=== PATIENT | male | born 1960 | race Caucasian/White ===

== ENCOUNTER 2020-01-23 12:40 | Observation (INO) | payer MEDICARE ==
[~2020-01-23] VITALS: Ht 172.7 cm; Wt 69.1 kg
--- NOTE | 2020-01-23 12:40 | NUR ---
PATIENT TO ROOM VIA EMS STATING MIDSTERNAL CHEST PAIN RADIATING DOWN RIGHT ARM. PATIENT STATES SIMILAR SYMPTOMS IN THE PAST WHEN HE RAN OUT OF HIS [facility]SON[facility] MEDS. PATIENT STATES HAS BEEN OUT OF HIS MEDICATION FOR A DAY BUT HAS THEM WAITING TO BE PICKED UP
[2020-01-23] MEDS ORDERED: PRAMIPEXOLE0.75 MG PO (13:01)
[2020-01-23] MEDS ORDERED: CARBIDOPA25 MG (13:02)
[2020-01-23 13:27] LABS: HEMOGLOBIN 12.5 g/dl (14.0-18.0); IMMATURE GRANULOCYTES 0.5 % (0.0-5.0); MEAN CELL VOLUME 95.7 fL CALC (80.0-100.0); MEAN CORPUSCULAR HGB 29.9 pG CALC (26.0-32.0); MEAN CORPUSCULAR HGB CONC 31.3 g/dL CAL (32.0-36.0); NEUT# 3.73 thou/uL (1.82-7.42); RED BLOOD COUNT 4.18 mill/uL (4.70-6.10); RED CELL DISTRI WIDTH 15.7 % (11.5-15.5)
--- NOTE | 2020-01-23 13:30 | NUR ---
PT ARRIVES BY EMS WITH COMPLAITS OF CHEST PRESSURE AND DIZZINESS. HE STATES THAT HE HAS NOT TAKEN HIS REGULAR P[facility]IN[facility] MEDS TODAY AND HE HAS SIMIALAR SYMPTOMS THIS WHEN HE IS OFF. THEY ARE FILLED BUT WAITING AT PHARM. PT WEAK, AOX4. DENIES ANY OTHER S/S AND PAINS.
--- NOTE | 2020-01-23 14:30 | NUR ---
PT RESTING ON STRETCHER DENYING ANY PAIN
[2020-01-23 14:31] LABS: ANION GAP 8 (6-22 (CALC)); BUN 14 mg/dL (9-20); BUN/CREATININE RATIO 16 (12-20 (CALC)); CARBON DIOXIDE 33 mmol/l (22-30); CHLORIDE 103 mmol/l (95-108); CREATININE 0.9 mg/dL (0.7-1.3); GFR > 60 ML/MIN (>=60 (CALC)); GFR FOR AFR.AMER. > 60 ML/MIN (>=60 (CALC)); POTASSIUM 4.2 mmol/l (3.5-5.1); SODIUM 139 mmol/l (137-146)
--- NOTE | 2020-01-23 15:30 | NUR ---
PT UPDATED ON PENDING ADMISSION. DENIES ANY NEEDS AT THIS TIME
[2020-01-23] MEDS ORDERED: CARB/LEVO1 TA3 PO (15:53)
[2020-01-23] MEDS ORDERED: PRAMIPEXOLE DI1.5 MG PO (15:54)
--- NOTE | 2020-01-23 16:11 | NUR ---
ATTEMPTED TO CALL REPORT AND IT WAS SAID THAT NURSE IS BUSY WITH A PT.
--- NOTE | 2020-01-23 16:21 | NUR ---
REPORT REC FROM MALIA TYLER
--- NOTE | 2020-01-23 16:22 | NUR ---
GAVE REPORT TO JANAE
--- NOTE | 2020-01-23 16:30 | NUR ---
PT TRANSPORTED TO [facility] SURG STABLE AND IN NO DISTRESS. CARE ASSUMED TO JANAE
--- NOTE | 2020-01-23 16:42 | NUR ---
PT ARRIVED TO [facility] VIA STRETCHER ACCOMPANIED BY MALIA TYLER. A&O X3. NO DISTRESS NOTED. WEAKNED AND SLIGHLTY SHUFFLED GAIT NOTED. PT STATES GAIT HAS WORSENED THROUGHOUT THE PAST COUPLE OF WEEKS. CURRENTLY STRESSED DUE TO FINANCIAL STATUS AND BEING HOMELESS. STATES CP IS CURRENTLY AT 3/10, DESCRIBED SHARP PAIN RADIATING TO THE RT ARM. PT STATES HE HAS MULTIPLE FALLS THROUGHOUT THE DAY. RT KNEE SWOLLEN, PT STATES IT WAS DUE TO A FALL. EDEMA NOTED TO BLE. NO OTHER NEEDS AT THIS TIME. ASSESSMENT COMPLETED. DISCUSSED POC. CALL LIGHT IN REACH. CONTINUE TO MONITOR.
[2020-01-23 16:58] VITALS: BP 135/87
[2020-01-23 19:15] VITALS: BP 134/86
--- NOTE | 2020-01-23 20:32 | NUR ---
PT MEDICATED ORDERS PROVIDE AND ASSESSMENT COMPLETED AT THIS TIME. PT DENIES ANY NEEDS AT THIS TIME. NEURO ASSESSMENT COMPLETED, MILD WEAKNESS TO RLE AND LUE. PT LOCX4, IDENTIFIES OBJECTS CORRECTLY. WILL CONTINUE TO MONITOR.
[2020-01-24 00:11] VITALS: BP 136/86
[2020-01-24 04:35] VITALS: BP 124/72
[2020-01-24 06:31] LABS: HEMATOCRIT 43.2 % (39.0-50.0); HEMOGLOBIN 13.5 g/dl (14.0-18.0); IMMATURE GRANULOCYTES 0.6 % (0.0-5.0); MEAN CELL VOLUME 94.5 fL CALC (80.0-100.0); MEAN CORPUSCULAR HGB 29.5 pG CALC (26.0-32.0); MEAN CORPUSCULAR HGB CONC 31.3 g/dL CAL (32.0-36.0); NEUT# 4.13 thou/uL (1.82-7.42); RED BLOOD COUNT 4.57 mill/uL (4.70-6.10); RED CELL DISTRI WIDTH 15.8 % (11.5-15.5)
[2020-01-24 06:48] LABS: ALBUMIN 3.2 g/dL (3.2-5.0); ALKALINE PHOSPHATASE 94 u/l (38-126); ANION GAP 8 (6-22 (CALC)); BILIRUBIN, TOTAL 0.3 mg/dL (0.0-1.4); BUN 11 mg/dL (9-20); BUN/CREATININE RATIO 14 (12-20 (CALC)); CALCULATED LDLCHOLESTEROL 50 mg/dL (62-129 (CALC)); CARBON DIOXIDE 29 mmol/l (22-30); CHLORIDE 106 mmol/l (95-108); CHOLESTEROL HDL RATIO 2.3 (<4.4 (CALC)); CREATININE 0.8 mg/dL (0.7-1.3); GFR > 60 ML/MIN (>=60 (CALC)); GFR FOR AFR.AMER. > 60 ML/MIN (>=60 (CALC)); HDL CHOLESTEROL 48 mg/dL (>=40); MAGNESIUM 1.9 mg/dL (1.6-2.3); POTASSIUM 4.4 mmol/l (3.5-5.1); SGOT/AST 38 u/l (17-59); SODIUM 139 mmol/l (137-146); TOTAL CHOLESTEROL 108 mg/dl (0-199); TOTAL PROTEIN 6.2 g/dL (6.3-8.2); TOTAL TRIGLYCERIDES 53 mg/dl (30-149); VLDL CHOLESTROL 11 mg/dl (4-45 (CALC))
[2020-01-24 08:04] VITALS: BP 131/88
--- NOTE | 2020-01-24 08:04 | NUR ---
RECIEVED REPORT FROM NAYELI SLADE. PT RESTING IN SEMI FOWLERS POSITION UPION ENTERING ROOM. INTRODUCED SELF TO PT AND DISCUSSED POC. PT IS A/O X3. ASSESSMENT AND VITALS COMPLETED AT THIS TIME. BP 131/88, HR 70, O2 96% ON ROOM AIR. RESPIRATIONS ARE EVEN AND UNLABORED WITH NO SIGNS OF DISTRESS NOTED. LUNG SOUNDS ARE CLEAR. HEART RHYTHM IS NORMAL. BOWEL SOUNDS ARE ACTIVE, LAST REPORTED BM 01/22/20. RADIAL AND PEDAL PULSES ARE STRONG WITH NORMAL CAPILLARY REFILL. #18G IN LAC RUNNING WITH NS PER ORDER, SITE APPEARS HEALTHY AND PATENT. PT COMPLAINS OF 3/10 CHEST PAIN IN RIGHT CHEST ABD ARM. PT TO BE MEDICTAED PER EMAR. PT DENIES OF ANY ADDITIONAL NEEDS AT THIS TIME. ALL SAFETY PRECAUTIONS ARE IN PLACE WITH CALL LIGHT IN REACH. WILL CONTINUE TO MONITOR.
--- NOTE | 2020-01-24 10:30 | NUR ---
DR NEVES AT BEDSIDE DISCUSSING POC WITH PT
[2020-01-24] MEDS ORDERED: PRAMIPEXOLE DI1.5 MG PO (11:01)
[2020-01-24] MEDS ORDERED: CARB/LEVO1 TA3 PO (11:03)
--- NOTE | 2020-01-24 11:11 | NUR ---
REASSESSMENT OF BP RESUTLING IN 2/ PT STATES TYLENOL IS HELPING. RESPIRATIONS ARE EVEN AND UNLABROED WITH NO SIGNS OF DISTRESS NOTED. ALL SAFETY PRECAUTIONSA RE IN PLACE. WILL CONTINUE TO MONITOR
[2020-01-24 12:00] VITALS: BP 114/75
--- NOTE | 2020-01-24 12:15 | NUR ---
PT RESTING IN SEMI FOWLERS POSITION. PT IS A/O X3. REPSIRATIONS ARE EVEN AND UNLABORED WITH NO SIGNS OF DISTRESS NOTED. PT DENIES OF ANY PAIN OR DISCOMFORTS AT THIS TIME. DISCHARGE ORDERS IN PLACE. AWAITING FOR RESPONSE FROM [facility]. ALL SAFETY PRECAUTIONSA RE IN PLACE. WILL CONTINUE TO MONITOR
--- NOTE | 2020-01-24 15:15 | NUR ---
JUSTICE CALLED FOR STATUS OF MEDICATIONS. WRITTER WAS INFORMED THAT MEDICATIONS WAS NOT SENT. MD TO BE NOTIFIED.
--- NOTE | 2020-01-24 15:20 | NUR ---
JUSTICE CALLED FOR PT MEDICATIONS. WRITTER WAS INFORMED THAT MEDICTAIONS WAS RECIEVED AND PHARMACY WAS TO BE CALLED TO SEE IF HOSPITAL WOULD PAY FOR MEDIACTIONS.
[2020-01-24 16:00] VITALS: BP 140/95
--- NOTE | 2020-01-24 16:10 | NUR ---
PT RESITNG IN SEMI FOWLERS POSITION UPON ENTERING ROOM. PT IS A/O X3. RESPIRATIONS ARE EVEN AND UNLABORED WITH NMO SIGNS OF DISTRESS NOTED. AWAITING FOR DELIVERY OF MEDICATIONS FOR WALGREEENS BEFORE DISCHARGE. PT NOTIFED AND VERBALIZES UNDERSTANDING. ALL SAFETY PRECAUTIONS ARE IN PLACE WIHT CALL LIGHT IN REACH .WILL CONTINUE TO MONITOR
[2020-01-24] MEDS ORDERED: LEVOTHYROXIN50 MCG PO (17:52)
--- NOTE | 2020-01-24 17:52 | NUR ---
PT EDUCATED ON DISCHARGE INDRTUCTIONS AND NE MEDICTAION LEVOTHYROXIN. PT VERBAILZED UNDERSTANDING. CARVEDOPA/ LEVOPODA AND PREMAPOXOLE DELIVERED TO PT BY JUSTICE. LEVOTHYROXINE SCIPT GIVEN TO PT. PT INFORMED THAT HE WILL NEED TO GET MED FILLED. PT VERBAILZED UNDERSTANDING. IV REMOVED WITH CATHATER STILL INTACT. PT TOLERATED WELL. PT TO BE TRANSPORTED TO [facility] VIA [facility] PAID FOR MY [facility]. ALL SAFETY PRECAUTIONS ARE IN PLACE. WILL CONTINUE TO MONITOR
--- NOTE | 2020-01-24 18:27 | NUR ---
Discharge instructions given. Patient verbalizes understanding of same. Discharged in stable condition via Wheelchair to Home with staff. All belongings sent with pt. pt discharge via wheelchair accompained by ajith arenas in stabel condition. pt dicharged to [facility] with medications scripts and discharge paperwork.
== END 2020-01-24 18:30 | disposition home or self-care (01) ==
LOC: ED 12:40 → ED-I 14:35 → ED 14:58 → MS2 14:59
PROVIDERS: Family Medicine; Nurse Practitioner; ADMIT Internal Medicine; ATTEND Internal Medicine
DX: R07.9 Chest pain, unspecified (principal); T42.8X6A Underdosing of antiparkinsonism drugs and other central muscle-tone depressants, initial encounter; G20 Parkinson's disease; E03.9 Hypothyroidism, unspecified; Z59.0 Homelessness; Z91.120 Patient's intentional underdosing of medication regimen due to financial hardship; Z20.828 Contact with and (suspected) exposure to other viral communicable diseases
CPT/HCPCS: G0378; J1650